=== PATIENT | male | born 1955 | race African-American/Black ===

== ENCOUNTER 2025-02-16 14:42 | Outpatient (AMB) | payer MEDICARE, MEDICAID, SELFPAY ==
--- NOTE | 2025-02-16 14:46 | A.OFFVIS_ITS ---
Intake Visit Reasons: 6m Allergies No Known Allergies Allergy (Verified 02/16/25 14:49) Medication List - Last Reconciled 02/16/25 by Alexus Stahl CNP atorvastatin 80 mg PO DAILY lswfkzfhum-tqxiiekdmxmzh-qbmg 50-325-40 mg 1 - 2 tabs PO DAILY PRN lisinopril 20 mg PO DAILY loratadine 10 mg PO DAILY naproxen 500 mg PO BID propranolol ER 120 mg PO DAILY HPI Comments Details: 69-year-old man with HTN, overweight, pre-diabetes, and migraine headaches. He was doing okay. Hadaches were still happening. Fioricet as needed helped. He was again asking if the quantity per month could be increased, first to 30/month and then to 20/month. [facility] Medical History (Updated 02/16/25 @ 14:50 by Alexus Stahl CNP) ALEJANDRO (obstructive sleep apnea) Hypercholesteremia Hypertension Review of Systems Const Denies chills, Denies daytime sleepiness, Denies difficulty sleeping, Denies fatigue, Denies fever(s), Denies frequent falls, Reports headache(s), Denies increased appetite, Denies poor appetite, Denies snoring, Denies weakness, Denies weight gain and Denies weight loss Eyes Denies loss of vision ENT Denies vertigo, Denies dizziness and Reports headache(s) Card Denies chest pain at rest, Denies chest pain with activity, Denies syncope, Denies leg edema and Denies palpitations Resp Denies snoring GI Denies constipation, Denies heartburn, Denies diarrhea and Denies nausea Denies urinary frequency, Denies urinary incontinence and Denies urinary urgency Musc Denies abnormal gait, Denies numbness and Denies tingling Skin/Breast Denies dry skin and Denies rash Neuro Denies abnormal gait, Denies vertigo, Denies dizziness, Denies syncope, Denies frequent falls, Reports headache(s), Denies lack of coordination, Denies loss of vision, Denies memory loss, Denies numbness, Denies restless legs, Denies seizure-like activity, Denies tingling, Denies paresthesias, Denies tremor(s) and Denies weakness Psych Denies anxiety, Denies depression, Denies auditory hallucinations, Denies memory loss, Denies visual hallucinations and Denies suicidal ideation Endo Denies fatigue and Denies palpitations Physical Exam Const Other: General Appearance:? normal, in no acute distress. Skin:? no rashes, no significant birthmarks. Heart:? S1, S2 normal, no murmurs. Lungs:? clear anteriorly and posteriorly. Extremities:? no edema. Psych:? alert, oriented, cognitive function intact, cooperative with exam. Neuro Other: Mental Status:?Normal attention, orientation, memory and affect.? Cranial Nerves:?Pupils are equal, round and reactive to light. External occular muscles are intact. Visual copeland are full. Face is symmetrical. Facial sensations are normal. Tongue is midline. Palate elevates symmetrically. Shoulder shrugging is normal. Hearing to bedside conversation is normal. Coordination:?No ataxia,?no titubation.? Gait Exam: Within normal limits. Extrapyramidal System:?No tremor, rigidity with normal facial expressions.? Pronator Drift:?Not present.? Involuntary Movements:?No tremors seen.? Speech:?Normal.? Assessment & Plan Assessment & Plan (1) Migraine: Code(s): G43.909 - Migraine, unspecified, not intractable, without status migrainosus Category: Medical Qualifiers: Intractability: not intractable Migraine type: unspecified Status migrainosus presence: without status migrainosus Qualified Code(s): G43.909 - Migraine, unspecified, not intractable, without status migrainosus Plan: Continue Fioricet 50-325-40mg 1-2 tablets as needed for headache #16 for 30 days. He was again informed that quantity per month would not be increased - use/side effects and possible risks reviewed, including potential for dependency. Medications: New jhadmfsouu-auxwxsqfxxgws-opcm 50-325-40 mg 1 - 2 tabs PO DAILY PRN 16 tabs 5RF headache 30 days Coding Level of Care Code Est Pt Level 4 (27250) Diagnoses Migraine without status migrainosus, not intractable, unspecified migraine type G43.909 Intractability: not intractable Migraine type: unspecified Status migrainosus presence: without status migrainosus
--- OUTSIDE RECORDS SUMMARY | 2025-02-16 18:31 | XMS_ITS | Clinical Summary ---
Author Organization [facility] Address [address] [place] [address] Care Team Providers Care Disassembler Product Name Role Phone Dawood Tamez MD Primary Care Provider [phone] Source Comments PLEASE NOTE, if this patient is a minor, it may be UNLAWFUL to discuss sensitive information that is contained in these records (such as FAMILY PLANNING, MENTAL HEALTH or SUBSTANCE ABUSE) with the minor patient's parent or other person without the patient's specific authorization.[facility] Allergies No known active allergies Medications gabapentin (NEURONTIN) 300 mg capsuleIndications :Midline low back pain without sciatica, unspecified chronicity TAKE 1 CAPSULE BY MOUTH TWICE A DAY 180 Cap 04/13/20 19 Active docusate sodium (COLACE) 100 mg capsuleIndications :Other constipation TAKE 1 CAPSULE BY MOUTH TWICE A DAY 60 Cap 2 01/03/20 20 Active multivitamin capsule Take 1 Capsule by mouth once daily 100 Capsule 3 10/26/19 22 Active diclofenac sodium (VOLTAREN) 1 % gelIndications:Art hritis of hand Apply 2 g topically 2 (two) times daily 450 g 1 09/12/19 23 Active methylPREDNISolone (MEDROL DOSPAK) 4 mg tablet packIndications:Ce rvical radiculopathy Follow package directions. 1 Packet 08/05/19 24 Active ibuprofen 600 mg tabletIndications: Cervical radiculopathy TAKE 1 TABLET BY MOUTH 4 TIMES DAILY NEEDED FOR PAIN. 60 Tablet 08/22/19 24 Active ciprofloxacin (CILOXAN) 0.3 % ophthalmic solutionIndication s:Acute conjunctivitis of left eye, unspecified acute conjunctivitis type PLACE 1 DROP INTO THE LEFT EYE 3 TIMES DAILY. 5 mL 08/31/19 24 Active clotrimazole (LOTRIMIN) 1 % creamIndications:T inea pedis of both feet Apply topically 2 (two) times daily 15 g 3 09/04/19 [address] tabletIndications: Essential hypertension Take 1 Tablet by mouth once daily 90 Tablet 1 10/09/19 24 Active sildenafiL (VIAGRA) 50 mg tabletIndications: Erectile dysfunction, unspecified erectile dysfunction type Take 1 Tablet by mouth once daily as needed for erectile dysfunction 10 Tablet 1 10/09/19 24 Active hydroCHLOROthiazid e (HYDRODIURIL) 25 mg tabletIndications: Essential hypertension Take 1 Tablet by mouth once daily 90 Tablet 3 01/14/20 24 Active polyethylene glycol, PEG, 3350 (GAVILAX) 17 gram/dose powderIndications: Constipation, unspecified constipation type Take 17 g by mouth once daily 510 g 1 01/14/20 24 Active lisinopriL 20 mg tabletIndications: Essential hypertension Take 1 Tablet by mouth once daily 90 Tablet 1 05/13/19 25 Active losartan (COZAAR) 50 mg tabletIndications: Essential hypertension Take 1 Tablet by mouth once daily 90 Tablet 05/13/19 25 Active propranoloL (INDERAL LA) 120 mg 24 hr capsuleIndications :Essential hypertension Take 1 Capsule by mouth daily. 90 Capsule 3 05/13/19 25 Active atorvastatin (LIPITOR) 80 mg tabletIndications: Other hyperlipidemia TAKE 1 TABLET BY MOUTH EVERY DAY 90 Tablet 1 11/08/19 25 Active loratadine (CLARITIN) 10 mg tabletIndications: Seasonal allergic rhinitis, unspecified trigger TAKE 1 TABLET BY MOUTH EVERY DAY 90 Tablet 1 11/27/19 25 Active naproxen (NAPROSYN) 500 mg tabletIndications: Chronic bilateral low back pain without sciatica TAKE 1 TABLET BY MOUTH TWICE A DAY WITH FOOD 180 Tablet 12/06/19 25 Active Active Problems Problem Noted Date Diagnosed Date Cervical radiculopathy at C5 10/09/2023 Overview (10/09/2023): X-ray neck to [facility] - 08/05/23 Multilevel degenerative disc disease. Right-sided C5-6 neuroforaminal stenosis. Neuroforaminal stenosis of cervical spine 2023 Overview (09/04/2023): X-ray [facility] 4/10/24 Multilevel degenerative disc disease and .Right-sided C5-6 neuroforaminal stenosis. Skin tags, multiple acquired 09/04/2023 Tinea pedis 09/04/2023 Chronic bilateral low back pain without sciatica 02/03/2019 Overview (02/03/2019): Referred to [facility] Atypical chest pain 01/08/2018 Overview (03/11/2018): Referred to cariology [facility]. Seen by them. ordered Stress Moshe protocol and Echo Carvidilol 12.5 mg po bid Exercise Stress Test 03/12/18 normal Stage 3 chronic kidney disease (HCC-CMS) 017 Overview (04/15/2018): See Nephrology Arthritis of hand 10/22/2016 Overview (05/05/2018): [facility] Dyslipidemia 05/09/2016 Obesity (BMI 30-39.9) 05/09/2016 Hypertension 05/09/2016 Migraine headache 05/09/2016 Immunizations Immunization Administration Dates Next Due Flu, Adjuvant, 65y+ (Fluad) 01/30/2020 Flu, High Dose, 65y+, Fluzone High Dose 04/08/20 23 Flu, Preservative Free 06/05/2021,01/18/2018 Influenza (FLUZONE), high-dose, trivalent, PF ,02/03/2019 Moderna COVID-19 (Spikevax), Mrna, Lnp-s, Pf, 50 Mcg/0.5 Ml, 12yr+ 04/08/2023 Moderna COVID-19 Vaccine, re d cap blue label, 12+ Primary Series 03/06/2021,06/23/2020 PNEUMOCOCCAL CONJUGATE PCV 13 08/06/2016 PNEUMOCOCCAL POLYSACCHARIDE PPV23 (Pneumovax 23) 06/05/2021 Pfizer COVID-19 (Comirnaty), Mrna, Lnp-s, Pf, Gen-sucrose, 30 Mcg/0.3 Ml, 12yr+ 01/14/2024 TDAP 08/06/2016 ZOSTER VACCINE, RECOMBINANT (SHINGRIX) 3,12/09/2021 Family History Medical History Relation Name Comments Diabetes Brother Cancer Father lung ca Hypertension Mother Relation Name Status Comments Brother Father Mother Alive Social History Tobacco Use Types Packs/Day Years Used Date Smoking Tobacco: Never Passive Smoke Exposure: Never Smokeless Tobacco: Never Alcohol Use Standard Drinks/Week Comments No 0 (1 standard drink = 0.6 oz pur e alcohol) Social Connections Answer Date Recorded Connectedness 0 01/11/2024 Financial Resource Strain Answer Date R ecorded Financial Resource Strain 0 2018 Stress Answer Date Recorded Stress 0 12/19/2018 Physical Activity Answer Date Recorded Physical Activity 0 12/19/2018 Food Insecurity Answer Date Recorded Food 0 01/21/2024 Transportation Needs Answer Date Record ed Transportation 0 12/19/2018 Housing Stability Answer Date Recorded Housing 0 12/19/2018 Safety and Environment Answer Date Romie rded Safety 0 12/19/2018 Utilities Answer Date Recorded Utilities 0 12/19/2018 Employment Answer Date Recorded Stress 0 01/11/2024 Sex and Gender Information Value Date Recorded Sex Assigned at Male 07/30/2017 1:35 PM PDT Legal Sex Male 1:36 PM PST Gender Identity Male 07/30/2017 1:35 PM PDT Sexual Orientation Straight 07/30/2017 1: 35 PM PDT Occupation Industry Job Start Date Job End Date Not on file Not on file Not on file Not on file Last Filed Vital Signs Vital Sign Reading Time Taken Comments Blood Pressure 154/92 05/13/2024 2:19 PM EST Pulse 90 05/13/2024 2:19 PM EST Temperature 37 C (98.6 F) 05/13/2024 2:19 PM EST Respiratory Rate 16 05/13/2024 2:19 PM EST Oxygen Saturation 96% 05/13/2024 2:19 PM EST Inhaled Oxygen Concentration - - Weight 120.2 kg (265 lb) 05/13/2024 2:19 PM EST Height 175.3 cm (5' 9 ) 05/13/2024 2:19 PM EST Body Mass Index 39.13 05/13/2024 2:19 PM EST Plan of Treatment Health Maintenance Due Date Last Done Comments Dental FMX/Pano 1955 Hepatitis C Screening 1955 Medicare Annual Wellness Visit 1971 CT Colonography 1998 Colonoscopy 1998 Fecal DNA 1998 Flexible Sigmoidoscopy 1998 Lipid Screening 01/05/2018 01/05/2017, 08/12/2016 Diabetes Screening 01/06/2020 01/05/2017, 0 08/12/2016, 08/12/2016 Dental Examination 09/27/2022 09/25/2021 Dental Prophy 09/27/2022 09/25/2021 Falls Prevention 07/08/2024 07/09/2023, , 06/05/2021, Additional history exists Colorectal Cancer Screening 11/30/2024 FIT/gFOBT 11/30/2024 12/01/2023, 07/31/2021 Wkm-EXDOF-16 ( season) 2024 01/14/2024, 04/08/2023, 03/06/2021, Additional history exists Imm-Influenza (#1) 2024 01/14/2024, 1 06/09/2022, 06/05/2021, Additional history exists Tobacco Screening 05/13/2025 05/13/2024 Imm-DTaP/Tdap/Td (2 - Td or Tdap) 08/06/2026 017, 10/12/2008 Imm-Pneumococcal 50+ Completed 06/05/2021, 08/06/2016, 11/30/2008 Imm-Zoster, Recombinant Completed 04/08/2023, 12/09 Alcohol and Drug Screen Completed 05/13/19 25, 07/09/2023, 04/08/2023, Additional history exists Depression Annual Screen Completed 025, 07/09/2023, 04/08/2023 Procedures Procedure Name Priority Date/Time Associated Diagnosis Comments FECAL GLOBIN BY IMMUNOCHEM (MEDICARE) Routine 12/01/2023 3:54 PM EDT Screen for colon cancer Full PROPHYLAXIS - ADULT Routine 09/25/2021 3:00 PM EDT [facility] PERIODIC ORAL EVALUATION ESTABLISHED PATIENT Routine 09/25/2021 3:00 PM EDT [facility] COMPREHENSIVE METABOLIC PANEL Routine 01/05/2017 10:28 AM EDT Elevated serum creatinine LIPID PANEL Routine 01/05/2017 10:28 AM EDT Dyslipidemia from Last 3 Months or Most Recently Relevant to Health Maintenance Results * FECAL GLOBIN BY IMMUNOCHEM (MEDICARE) (12/01/2023 3:54 PM EDT) FECAL GLOBIN BY IMMUNOCHEMISTRY See Note [email or web address] [facility] Comment: FECAL GLOBIN BY IMMUNOCHEMISTRY Micro Number: [id number] Test Status: Final Specimen Source: Insure (tm) fobt test card Specimen Quality: Adequate Fecal Globin: Not Detected Stool Stool specimen / Unknown 12/01/2023 3:54 PM EDT 12/02/2023 11:07 AM EDT Krishan Rosales MD LAB BODY FLUIDS AND STOOLS [facility] Final Result Performing Organization Address City/[facility]/ZIP Co de Phone Number [facility] [address] [address], [employer] [address] [address] * LIPID PANEL (01/05/2017 10:28 AM EDT) CHOLESTEROL 168 0 - 200 mg/dL [facility] TRIGLYCERIDES 132 0 - 150 mg/dL [facility] HDL CHOLESTEROL 45 >40 mg/dL [facility] LDL CALCULATED 97 0 - 100 mg/dL [facility] TC-HDLC RATIO 3.7 0 - 4.4 mg/dL [facility] Blood specimen (specimen) Blood / Unknown 01/05/2017 10:28 AM EDT 01/05/2017 11:01 AM EDT Narrative [facility] - 01/05/2017 12:19 PM EDT [facility] [address] [place] [address] PT ID [id number] ORD# [id number] Lashanda [facility] - BLOOD DRAW Final Resul t Performing Organization Address City/[facility]/ZIP Co de Phone Number [address] [address], * (ABNORMAL) COMPRE METAB PANEL (01/05/2017 10:28 AM EDT) GLUCOSE 91 70 - 100 mg/dL [facility] Comment:Reference range appl icable to fasting specimens only BUN 18 5 - 25 mg/dL [facility] CREAT 1.39(H) 0.7 - 1.3 mg/dL [facility] GLOMERULAR FILTRATION RATE 52 [facility] Comment: If patient is -Boliv[place], multiply result by 1.21 Chronic Kidney Disease: < 60 ml/min/1.73 square meters Kidney Failure: < 15 ml/min/1.73 square meters SODIUM 139 133 - 145 mmol/L [facility] POTASSIUM 3.8 3.5 - 5.5 mmol/L [facility] CHLORIDE 106 96 - 110 mmol/L [facility] CO2 25 21 - 32 mmol/L [facility] ANION GAP 8 3 - 11 [facility] CALCIUM 9.0 8.5 - 10.5 mg/dL [facility] TOTAL PROTEIN 8.2(H) 6.0 - 8.0 G/dL [facility] ALBUMIN 3.9 3.2 - 5.0 G/dL [facility] BILI, TOTAL 0.5 0.0 - 1.4 mg/dL [facility] SGOT 18 10 - 42 U/L [facility] SGPT 22 10 - 60 U/L [facility] ALK PHOS 118 42 - 121 U/L [facility] Blood specimen (specimen) Blood / Unknown 01/05/2017 10:28 AM EDT 01/05/2017 11:01 AM EDT Narrative [facility] - 01/05/2017 12:19 PM EDT [facility] [employer] [address] [place] [address] PT ID [id number] ORD# [id number] Lashanda Avalos [employer] STACK[employer] DR[facility] LAB - BLOOD DRAW Final Resul t [facility] [address] [place] [address], from Last 3 Months or Most Recently Relevant to Health Maintenance Insurance [employer] [place] Care Teams Disassembler Product Relationship Specialty Start Date End Date Dawood Tamez MD [address] [place] [address] PCP - General Internal Medicine 02/09/25
--- OUTSIDE RECORDS SUMMARY | 2025-02-16 18:31 | XMS_ITS | Clinical Summary ---
Author Organization [facility] it Address [address] [place] [address] Care Team Providers Care Field Contractor Name Role Phone Unavailable Primary Care Provider Unavailabl e Social History Tobacco Use Types Packs/Day Years Used Date Smoking Tobacco: Never Assessed Sex and Gender Information Value Date Recorded Sex Assigned at Not on file Legal Sex Male 12:56 AM EST Gender Identity Not on file Sexual Orientation Not on file Plan of Treatment Health Maintenance Due Date Last Done Comments Colorectal Cancer Screening: Colonoscopy 1955 DTaP,Tdap,and Td Vaccines (1 - Tdap) 1972 Pneumococcal Vaccine: 50+ Ye ars (1 of 1 - PCV) 2003 Zoster Vaccines (1 of 2) 2003 Abdominal Aortic Aneurysm (A AA) Screen 05/26/2023 Cholesterol Screening (Lipid Panel) 05/26/2023 Falls Risk Assessment 05/26/2023 Hepatitis C Screening 05/26/2023 Social Influencers of Health Screening 05/26/2023 Depression Screening 04/27/2024 COVID-19 Vaccine (1 - 2023-2 5 season) 2024 Influenza Vaccine (#1) 2024 RSV Immunization Adult Patie nts (1 - 1-dose 75+ series) 2028 HIB Vaccines Aged Out No longer eligi ble based on patient's age to complete this topic HPV Vaccines Aged Out No longer eligi ble based on patient's age to complete this topic Hepatitis A Vaccines Aged Out No long er eligible based on patient's age to complete this topic Hepatitis B Vaccines Aged Out No long er eligible based on patient's age to complete this topic IPV Vaccines Aged Out No longer eligi ble based on patient's age to complete this topic MMR Vaccines Aged Out No longer eligi ble based on patient's age to complete this topic Meningococcal ACWY Vaccine Aged Out N o longer eligible based on patient's age to complete this topic Meningococcal B Vaccine Aged Out No l onger eligible based on patient's age to complete this topic RSV Immunization Patients Un mago 20 months Aged Out No longer eligible b ased on patient's age to complete this topic Varicella Vaccines Aged Out No longer eligible based on patient's age to complete this topic
== END 2025-02-16 15:05 | disposition home or self-care (01) ==
LOC: HO.HSM 14:43
PROVIDERS: PCP Internal Medicine; Referring Provider Internal Medicine; Visit Provider Registered Nurse
DX: G43.909 Migraine, unspecified, not intractable, without status migrainosus (principal)
CPT/HCPCS: 99214

== ENCOUNTER → 2025-02-16 14:42 | Outpatient (BNVA) | payer MEDICARE, SELFPAY | PROVIDERS: PCP Internal Medicine; Referring Provider Internal Medicine; Visit Provider Registered Nurse | DX: G43.909 Migraine, unspecified, not intractable, without status migrainosus (principal); I10 Essential (primary) hypertension | CPT/HCPCS: 99212 ==